=== PATIENT | female | born 1980 | race African-American/Black ===

== ENCOUNTER 2018-01-21 15:10 | Inpatient (IN) ==
[2018-01-21] MEDS: LACTATED RINGERS 1,000 ML IV SCH ×2 (15:43→23:45)
[2018-01-21] MEDS ORDERED: MEPERIDINE 50 MG/1 ML VIAL IV PRN (16:03)
[2018-01-21 16:23] LABS: Basophils % 0.8 % (0.0-0.8); Eosinophils % 0.8 % (0.00-10.9); Hematocrit 29.1 VOL% (35.7-47.0); Immature Granulocytes % 0.2 %; Immature Granulocytes Absolute 0.01 #; Lymphocytes # 0.9 10*3/uL (1.4-4.0); Lymphocytes % 19.7 % (21.3-54.2); Mean Corpuscular HGB Conc 30.9 GM/DL (32-36); Mean Corpuscular Hemoglobin 27 PG (27-34); Mean Corpuscular Volume 86.9 FL (87-102); Mean Platelet Volume 10.7 FL (9.6-12.0); Monocytes # 0.4 10*3/uL (0.11-0.8); Neutrophils # 3.3 10*3/uL (1.4-7.4); Neutrophils % 69.5 % (38.7-73.9); Platelet Count 188 T/CUMM (130-400); Red Blood Count 3.35 MC/CUMM (3.8-5.5); Red Cell Distribution Width 16.7 % (9.3-17.3); White Blood Count 4.8 T/CUMM (4-12)
[2018-01-21 16:44] LABS: Albumin 2.9 G/DL (3.4-5.0); Bilirubin,Total 0.7 MG/DL (0.2-1.0); Calcium 8.6 MG/DL (8.5-10.1); Osmolality,Calculated 269.8 MOS/KG (273-304); Potassium 3.7 MMOL/L (3.5-5.1); Total Protein 6.7 G/DL (6.4-8.3); Uric Acid 3.2 MG/DL (2.6-6.0)
[2018-01-21] MEDS: BUTORPHANOL 2 MG/ML VIAL IV PRN (22:08)
[2018-01-21] MEDS: ONDANSETRON 4 MG/2 ML VIAL IV PRN (23:30)
[2018-01-22] MEDS ORDERED: OXYTOCIN/LR 20 UNIT/1,000 ML BAG IV SCH (06:00)
[2018-01-22] MEDS: BUTORPHANOL 2 MG/ML VIAL IV PRN (08:37)
[2018-01-22] MEDS: ONDANSETRON 4 MG/2 ML VIAL IV PRN (08:37)
[2018-01-22] MEDS ORDERED: LIDOCAINE 1% 50 ML VIAL ONE (09:35)
[2018-01-22] MEDS ORDERED: miSOPROStol 200 MCG TABLET ONE (09:36)
[2018-01-22 10:47] LABS: Cord Venous Blood HCO3 22.9 MMOL/L; Cord Venous Blood PCO2 39.4 MMHG; Cord Venous Blood PO2 35.9 MMHG
[2018-01-22 10:48] LABS: Cord Arterial Blood HCO3 20.8 MMOL/L
[2018-01-22] MEDS ORDERED: BISACODYL 10 MG SUPP RECTAL PRN (14:18)
[2018-01-22] MEDS ORDERED: HYDROCORTISONE 2.5% RECTAL CREAM 30 GM TUBE TOP PRN (14:18)
[2018-01-22] MEDS ORDERED: BENZOCAINE 20%/MENTHOL 0.5% SPRAY 56 GM CAN TOP PRN (14:18)
[2018-01-22] MEDS ORDERED: ACETAMINOPHEN 325 MG TABLET PO PRN (14:18)
[2018-01-22] MEDS ORDERED: LANOLIN 50% CREAM 0.3 OZ TUBE TOP PRN (14:18)
[2018-01-22] MEDS ORDERED: oxyCODONE/ACETAMINOPHEN 5-325 MG TABLET PO PRN (14:18)
[2018-01-22] MEDS ORDERED: WITCH HAZEL PADS 100/JAR TOP PRN (14:18)
[2018-01-22] MEDS ORDERED: ACETAMINOPHEN/CODEINE 300-30 MG TABLET PO PRN (14:18)
[2018-01-22] MEDS ORDERED: IBUPROFEN 800 MG TABLET PO PRN (14:18)
[2018-01-22] MEDS ORDERED: IBUPROFEN 800 MG TABLET PO ONE (14:19)
[2018-01-22] MEDS ORDERED: OXYTOCIN/LR 20 UNIT/1,000 ML BAG IV ONE ×2 (14:24→14:25)
[2018-01-22] MEDS ORDERED: DIPH/TET/ACEL PERT BOOSTER VACCINE 0.5 ML VIAL IM ONE (14:30)
[2018-01-22] MEDS ORDERED: MEASLES/MUMPS/RUBELLA VACCINE 0.5 ML VIAL SUBCUT ONE (14:30)
[2018-01-22] MEDS ORDERED: RHO(D) IMMUNE GLOBULIN 300 MCG SYRINGE IM ONE (15:00)
[2018-01-22] MEDS: oxyCODONE/ACETAMINOPHEN 5-325 MG TABLET PO PRN (19:34)
[2018-01-22] MEDS: DOCUSATE SODIUM 100 MG CAPSULE PO SCH (21:38)
[2018-01-23 05:04] LABS: Basophils # 0.1 10*3/uL (0.0-0.2); Basophils % 0.8 % (0.0-0.8); Eosinophils # 0.1 10*3/uL (0.0-0.87); Eosinophils % 1.5 % (0.00-10.9); Hematocrit 25.5 VOL% (35.7-47.0); Hemoglobin 8.1 GM/DL (12.0-16.0); Immature Granulocytes % 0.3 %; Immature Granulocytes Absolute 0.02 #; Lymphocytes # 1.3 10*3/uL (1.4-4.0); Lymphocytes % 21.6 % (21.3-54.2); Mean Corpuscular HGB Conc 31.8 GM/DL (32-36); Mean Corpuscular Hemoglobin 27 PG (27-34); Mean Corpuscular Volume 85.9 FL (87-102); Mean Platelet Volume 10.6 FL (9.6-12.0); Monocytes # 0.6 10*3/uL (0.11-0.8); Monocytes % 10.7 % (1.7-12.7); NRBC # 0.02 10*3/uL; Neutrophils # 3.9 10*3/uL (1.4-7.4); Neutrophils % 65.1 % (38.7-73.9); Platelet Count 150 T/CUMM (130-400); Red Blood Count 2.97 MC/CUMM (3.8-5.5); Red Cell Distribution Width 16.6 % (9.3-17.3)
[2018-01-23] MEDS: DOCUSATE SODIUM 100 MG CAPSULE PO SCH ×2 (09:36→22:20)
[2018-01-23] MEDS: FERROUS SULFATE 325 MG TABLET PO SCH ×2 (09:36→22:20)
[2018-01-23] MEDS: oxyCODONE/ACETAMINOPHEN 5-325 MG TABLET PO PRN (13:27)
[2018-01-24] MEDS: DOCUSATE SODIUM 100 MG CAPSULE PO SCH (08:32)
[2018-01-24] MEDS: FERROUS SULFATE 325 MG TABLET PO SCH (08:32)
[2018-01-24 11:24] VITALS: BP 112/72
== END 2018-01-24 15:00 | disposition home or self-care (01) | DRG 560 ==
LOC: N.LDOUT 15:10 → N.LD 15:12 → N.OB 01-22 14:21
PROVIDERS: ADMIT Obstetrics & Gynecology; ATTEND Obstetrics & Gynecology

== ENCOUNTER 2019-10-16 14:10 | Inpatient (IN) ==
[2019-10-16 14:52] LABS: Basophils % 0.6 % (0.0-0.8); Eosinophils # 0.1 10*3/uL (0.0-0.87); Eosinophils % 1.2 % (0.00-10.9); Hematocrit 28.8 VOL% (35.7-47.0); Hemoglobin 8.8 GM/DL (12.0-16.0); Immature Granulocytes % 0.6 %; Immature Granulocytes Absolute 0.03 #; Lymphocytes % 19.8 % (21.3-54.2); Mean Corpuscular HGB Conc 30.6 GM/DL (32-36); Mean Corpuscular Volume 86.2 FL (87-102); Mean Platelet Volume 10.9 FL (9.6-12.0); Monocytes % 10.2 % (1.7-12.7); Neutrophils % 67.6 % (38.7-73.9); Platelet Count 161 T/CUMM (130-400); Red Blood Count 3.34 MC/CUMM (3.8-5.5); Red Cell Distribution Width 14.4 % (9.3-17.3)
[2019-10-16 15:03] LABS: INR 0.9; PT Patient Result 9.6 SECS (9.6-12.2); Partial Thromboplastin Time 30.2 SECS (20.8-36.0)
[2019-10-16 15:12] LABS: Albumin 2.4 G/DL (3.4-5.0); Bilirubin,Direct 0.15 MG/DL (0.0-0.20); Bilirubin,Total 0.7 MG/DL (0.2-1.0); Calcium 8.6 MG/DL (8.5-10.1); Total Protein 6.6 G/DL (6.4-8.3); Uric Acid 3.4 MG/DL (2.6-6.0)
[2019-10-16] MEDS ORDERED: hydrALAZINE 20 MG/1 ML VIAL IV PRN (16:16)
[2019-10-16] MEDS ORDERED: ONDANSETRON 4 MG/2 ML VIAL IV PRN ×2 (16:18→19:20)
[2019-10-16] MEDS ORDERED: MEPERIDINE 50 MG/1 ML VIAL IV PRN (16:18)
[2019-10-16] MEDS ORDERED: BUTORPHANOL 2 MG/ML VIAL IV PRN (16:18)
[2019-10-16] MEDS ORDERED: LACTATED RINGERS 1,000 ML IV SCH ×2 (16:30→17:00)
[2019-10-16] MEDS ORDERED: ceFAZolin 2,000 MG in PREMIX 1 EACH IV ONE (16:53)
[2019-10-16] MEDS ORDERED: CITRIC ACID/SODIUM CITRATE 30 ML UDCUP PO ONE (16:53)
[2019-10-16] MEDS ORDERED: FAMOTIDINE 20 MG/2 ML VIAL IV ONE (16:53)
[2019-10-16] MEDS ORDERED: OXYTOCIN/LR 20 UNIT/1,000 ML BAG IV ONE ×2 (16:56→19:20)
[2019-10-16] MEDS ORDERED: BUPIVACAINE SPINAL 0.75% 2 ML AMP SPINAL ONE (18:06)
[2019-10-16] MEDS ORDERED: PHENYLEPHRINE 1 MG/10 ML SYRINGE IV ONE (18:06)
[2019-10-16] MEDS ORDERED: BENZOCAINE 20%/MENTHOL 0.5% SPRAY 56 GM CAN TOP PRN (19:20)
[2019-10-16] MEDS ORDERED: HYDROCORTISONE 2.5% RECTAL CREAM 30 GM TUBE TOP PRN (19:20)
[2019-10-16] MEDS ORDERED: ACETAMINOPHEN 325 MG TABLET PO PRN (19:20)
[2019-10-16] MEDS ORDERED: BISACODYL 10 MG SUPP RECTAL PRN (19:20)
[2019-10-16] MEDS ORDERED: WITCH HAZEL PADS 100/JAR TOP PRN (19:20)
[2019-10-16] MEDS ORDERED: MEASLES/MUMPS/RUBELLA VACCINE 0.5 ML VIAL SUBCUT ONE (19:20)
[2019-10-16] MEDS ORDERED: oxyCODONE/ACETAMINOPHEN 5-325 MG TABLET PO PRN (19:20)
[2019-10-16] MEDS ORDERED: RHO(D) IMMUNE GLOBULIN 300 MCG SYRINGE IM ONE (19:20)
[2019-10-16] MEDS ORDERED: DIPH/TET/ACEL PERT BOOSTER VACCINE 0.5 ML VIAL IM ONE (19:20)
[2019-10-16] MEDS ORDERED: LANOLIN 50% CREAM 0.3 OZ TUBE TOP PRN (19:20)
[2019-10-16] MEDS ORDERED: IBUPROFEN 800 MG TABLET PO PRN (19:20)
[2019-10-16] MEDS ORDERED: propofoL 200 MG/20 ML VIAL IV ONE (19:32)
[2019-10-16] MEDS ORDERED: MIDAZOLAM 2 MG/2 ML VIAL ONE (19:32)
[2019-10-16] MEDS ORDERED: MORPHINE 10 MG/10 ML VIAL ONE (19:33)
[2019-10-16 19:48] LABS: Apearance,Urine CLEAR (Clear); Bilirubin,Urine Negative (Negative); Blood, Urine Negative (Negative); Glucose,Urine (UA) Negative (Negative); Ketones,Urine 20 mg/dL (Negative); Mucus,Urine Occasional /LPF (Occasional); Nitrite,Urine Negative (Negative); Protein,Urine Negative; RBC,Urine <1 /HPF (0-4); Squamous Epithelial Cell,Urine Occasional /HPF (0-10); Urine Color Straw (Yellow); Urine Specific Gravity 1.004 (1.001-1.035); Urine Urobilinogen < 2.0 EU/DL (0.2-1.0); WBC,Urine <1 /HPF (0-6)
[2019-10-16] MEDS ORDERED: LABETALOL 200 MG TABLET PO SCH (21:00)
[2019-10-16] MEDS: LABETALOL 200 MG TABLET PO SCH (22:22)
[2019-10-17] MEDS: ceFAZolin 1,000 MG in SYRINGE 1 EACH IV SCH ×2 (01:57→10:00)
[2019-10-17] MEDS ORDERED: diphenhydrAMINE 50 MG/1 ML VIAL IV PRN (04:03)
[2019-10-17 05:21] LABS: Basophils % 0.5 % (0.0-0.8); Eosinophils % 0.1 % (0.00-10.9); Hemoglobin 8.2 GM/DL (12.0-16.0); Immature Granulocytes % 0.4 %; Immature Granulocytes Absolute 0.03 #; Lymphocytes # 0.8 10*3/uL (1.4-4.0); Lymphocytes % 10.3 % (21.3-54.2); Mean Corpuscular HGB Conc 30.4 GM/DL (32-36); Mean Corpuscular Volume 84.9 FL (87-102); Mean Platelet Volume 11.2 FL (9.6-12.0); Monocytes % 6.9 % (1.7-12.7); Neutrophils % 81.8 % (38.7-73.9); Platelet Count 150 T/CUMM (130-400); Red Blood Count 3.18 MC/CUMM (3.8-5.5); Red Cell Distribution Width 14.4 % (9.3-17.3); White Blood Count 7.4 T/CUMM (4-12)
[2019-10-17] MEDS: LABETALOL 200 MG TABLET PO SCH ×3 (06:01→21:02)
[2019-10-17] MEDS: DOCUSATE SODIUM 100 MG CAPSULE PO SCH ×2 (10:00→21:02)
[2019-10-17] MEDS: oxyCODONE/ACETAMINOPHEN 5-325 MG TABLET PO PRN (20:15)
[2019-10-18] MEDS: LABETALOL 200 MG TABLET PO SCH ×3 (05:45→21:50)
[2019-10-18] MEDS: DOCUSATE SODIUM 100 MG CAPSULE PO SCH ×3 (10:05→21:50)
[2019-10-18] MEDS ORDERED: MAGNESIUM HYDROXIDE SUSP 30 ML UDCUP PO PRN (10:27)
[2019-10-18 11:39] LABS: Basophils % 0.3 % (0.0-0.8); Eosinophils # 0.1 10*3/uL (0.0-0.87); Eosinophils % 0.8 % (0.00-10.9); Hematocrit 24.2 VOL% (35.7-47.0); Hemoglobin 7.3 GM/DL (12.0-16.0); Immature Granulocytes % 0.5 %; Immature Granulocytes Absolute 0.03 #; Lymphocytes # 0.9 10*3/uL (1.4-4.0); Mean Corpuscular HGB Conc 30.2 GM/DL (32-36); Mean Corpuscular Volume 86.1 FL (87-102); Mean Platelet Volume 11.2 FL (9.6-12.0); Monocytes % 8.7 % (1.7-12.7); Neutrophils % 75.7 % (38.7-73.9); Platelet Count 141 T/CUMM (130-400); Red Blood Count 2.81 MC/CUMM (3.8-5.5); Red Cell Distribution Width 14.5 % (9.3-17.3); White Blood Count 6.2 T/CUMM (4-12)
[2019-10-18 11:47] LABS: INR 0.9; PT Patient Result 9.6 SECS (9.6-12.2); Partial Thromboplastin Time 31.4 SECS (20.8-36.0)
[2019-10-18 12:21] LABS: Alanine Aminotransferase 11 U/L (13-56); Alkaline Phosphatase 93 U/L (45-117); Aspartate Amino Transferase 12 U/L (0-37); Bilirubin,Direct < 0.100 MG/DL (0.0-0.20); Blood Urea Nitrogen 5 MG/DL (7-18); Calcium 7.8 MG/DL (8.5-10.1); Estimated Glom Filtration Rate 170 ML/MIN; Glucose 72 MG/DL (74-106); Osmolality,Calculated 272.5 MOS/KG (273-304); Total Protein 5.6 G/DL (6.4-8.3); Uric Acid 3.8 MG/DL (2.6-6.0)
[2019-10-18] MEDS: oxyCODONE/ACETAMINOPHEN 5-325 MG TABLET PO PRN ×2 (12:48→21:50)
[2019-10-18 16:17] LABS: Apearance,Urine CLEAR (Clear); Bilirubin,Urine Negative (Negative); Blood, Urine Small mg/dL (Negative); Glucose,Urine (UA) Negative (Negative); Ketones,Urine Negative (Negative); Mucus,Urine Few /LPF (Occasional); Nitrite,Urine Negative (Negative); Protein,Urine Negative; RBC,Urine 41 /HPF (0-4); Squamous Epithelial Cell,Urine Occasional /HPF (0-10); Urine Color Yellow (Yellow); Urine Specific Gravity 1.013 (1.001-1.035); WBC,Urine 1 /HPF (0-6)
[2019-10-18] MEDS ORDERED: POTASSIUM CHLORIDE 20 MEQ TABLET PO ONE (16:56)
[2019-10-18] MEDS ORDERED: DIPH/TET/ACEL PERT BOOSTER VACCINE 0.5 ML VIAL IM ONE (17:46)
[2019-10-19] MEDS: LABETALOL 200 MG TABLET PO SCH ×2 (05:56→16:09)
[2019-10-19] MEDS: oxyCODONE/ACETAMINOPHEN 5-325 MG TABLET PO PRN (08:07)
[2019-10-19] MEDS: DOCUSATE SODIUM 100 MG CAPSULE PO SCH (08:07)
[2019-10-19 11:32] VITALS: BP 149/91
[2019-10-19] MEDS ORDERED: LABETALOL 100 MG TABLET ONE (15:57)
[2019-10-19] MEDS ORDERED: LABETALOL 200 MG TABLET PO SCH (16:00)
== END 2019-10-19 16:55 | disposition home or self-care (01) | DRG 787 ==
LOC: N.LDOUT 14:10 → N.LD 14:20 → N.OB 23:45
PROVIDERS: ADMIT Specialist; ATTEND Specialist
PROC: LDCSECT (ICD-10-PCS; 2019-10-16 17:30)